=== PATIENT | female | born 1955 | race African-American/Black ===

== ENCOUNTER 2018-08-11 11:29 | Emergency (ER) | payer MEDICARE, MEDICAID ==
[~2018-08-11] VITALS: Ht 154.9 cm; Wt 60.0 kg
[2018-08-11] MEDS ORDERED: HYDROCODONE/ACETAMINOPHEN 10/325MG TABLET PO ONE (13:30)
[2018-08-11] MEDS ORDERED: DIAZEPAM 5 MG TABLET PO ONE (15:00)
[2018-08-11] MEDS ORDERED: ONDANSETRON 4MG ODT PO ONE (15:30)
[2018-08-11] MEDS ORDERED: DIAZEPAM 5 MG TABLET PO NR (17:30)
[2018-08-11 17:34] VITALS: BP 126/77
== END 2018-08-11 17:36 | disposition home or self-care (01) ==
LOC: ER 11:29
DX: M54.5 Low back pain (principal); M48.00 Spinal stenosis, site unspecified; J45.909 Unspecified asthma, uncomplicated; Z90.710 Acquired absence of both cervix and uterus; Z88.6 Allergy status to analgesic agent
CPT/HCPCS: 72110; 72131; 72170; 99284; Q0162